=== PATIENT | female | born 1975 | race African-American/Black ===

== ENCOUNTER 2019-06-15 08:02 | Emergency (ER) | payer MEDICAID ==
[~2019-06-15] VITALS: Ht 162.6 cm; Wt 70.3 kg
[2019-06-15] MEDS ORDERED: DiphenhydrAMINE 50mg/ml Inj IVP ONE (08:30)
[2019-06-15] MEDS ORDERED: Ketorolac 30mg Inj IV ONE (08:30)
[2019-06-15] MEDS ORDERED: Metoclopramide 10mg/2ml Inj IVP ONE (08:30)
--- NOTE | 2019-06-15 08:30 | Emergency Room Report ---
History of Present Illness General Chief Complaint: Headache Source: Patient Present Illness HPI Patient is a 43-year-old female presented after increased headache for 5 days. Headache is been present intermittently for several days. She had sick contacts at home. She denies any neck stiffness. She reports having throbbing sensation to the frontal area. She denies any neck stiffness or fever. She denies prior history of imaging studies. She had recently been seen at [facility] at [place]. Denies vomiting some phonophobia. gradual onset. Allergies: Coded Allergies: No Known Allergies (Unverified , 06/15/19) Patient History Past Medical History: see triage record Last Menstrual Period: 05/24/19 Reviewed Nursing Documentation: PMH: Agreed; PSxH: Agreed Nursing Documentation-PMH Past Medical History: No Stated History Review of Systems All Other Systems: negative except mentioned in HPI Physical Exam Vital Signs Date Time Temp Pulse Resp B/P (MAP) Pulse Ox O2 Delivery O2 Flow Rate FiO2 06/15/19 08:08 98.1 81 18 142/81 (101) 100 Room Air Sp02 EP Interpretation: reviewed, normal General Appearance: normal inspection, well appearing, no apparent distress, alert, GCS 15 Head: atraumatic ENT: normal ENT inspection, hearing grossly normal, normal voice, uvula midline , pharyngeal erythema Neck: normal inspection, full range of motion, supple, no bony tend Respiratory: normal inspection, lungs clear, normal breath sounds, no respiratory distress, no retraction, no wheezing Cardiovascular #1: regular rate, rhythm, no edema Gastrointestinal: normal inspection, normal bowel sounds, non tender, soft, no guarding, no hernia Genitourinary: no CVA tenderness Musculoskeletal: normal inspection, back normal, normal range of motion Neurologic: normal inspection, alert, oriented x3, responsive, bi tri operator III-XII nml as tested, motor strength/tone normal, speech normal Psychiatric: normal inspection, judgement/insight normal, mood/affect normal Skin: no rash Medical Decision Making Diagnostic Impression: Primary Impression: Iron deficiency anemia Additional Impression: Headache ER Course Patient presented for headache. Differential diagnoses included but was not limited to skull fracture, subarachnoid hemorrhage, meningitis, aneurysm, mass lesion, intracranial hemorrhage. Because of complexity of patient's case laboratory tests and imaging studies were ordered.Patient was noted to have some significant anemia. She does not appear to require transfusion at this time and has no evidence of active bleeding. Patient was advised to take iron pills. She is advised to follow-up with her primary care physician to have her hemoglobin rechecked. CT imaging showed no evidence of acute intracranial pathology, minimal sinus disease. Patient does not appear to require antibiotics at this time. No evidence of meningitis. Patient was advised of laboratory results. She was advised to return if she had any worsening condition or other concerns. The patient is advised to follow up with primary care doctor in 1-2 days. Patient is advised to return if any worsening condition or if any changes in status that are concerning. This report is dictated with [employer] gardening manager software which may occasionally lead to discrepancies related to use of this software. Labs Test 06/15/19 08:14 06/15/19 08:43 Urine Color Pale yellow Urine Appearance Clear Urine pH 5 (4.5-8.0) Urine Specific [place] 1.020 (1.005-1.035) Urine Protein Negative (NEGATIVE) Urine Glucose (UA) Negative (NEGATIVE) Urine Ketones Negative (NEGATIVE) Urine Blood 2+ (NEGATIVE) Urine Nitrite Negative (NEGATIVE) Urine Bilirubin Negative (NEGATIVE) Urine Urobilinogen Normal MG/DL (0.0-1.0) Urine Leukocyte Esterase Negative (NEGATIVE) Urine RBC 0-2 /HPF (0 - 2) Urine WBC 0-2 /HPF (0 - 2) Urine Squamous Epithelial Cells Few /LPF (NONE/OCC) Urine Bacteria Few /HPF (NONE) Urine Mucus Few /LPF (NONE/OCC) Urine HCG, Qualitative Negative (NEGATIVE) White Blood Count 6.6 K/UL (4.8-10.8) Red Blood Count 4.02 M/UL (4.20-5.40) Hemoglobin 8.7 G/DL (12.0-16.0) Hematocrit 28.3 % (37.0-47.0) Mean Corpuscular Volume 71 FL (80-99) Mean Corpuscular Hemoglobin 21.7 PG (27.0-31.0) Mean Corpuscular Hemoglobin Concent 30.8 G/DL (32.0-36.0) Red Cell Distribution Width 16.6 % (11.6-14.8) Platelet Count 347 K/UL (150-450) Mean Platelet Volume 5.4 FL (6.5-10.1) Neutrophils (%) (Auto) 59.3 % (45.0-75.0) Lymphocytes (%) (Auto) 27.6 % (20.0-45.0) Monocytes (%) (Auto) 6.8 % (1.0-10.0) Eosinophils (%) (Auto) 5.0 % (0.0-3.0) Basophils (%) (Auto) 1.4 % (0.0-2.0) Sodium Level 138 MMOL/L (136-145) Potassium Level 3.8 MMOL/L (3.5-5.1) Chloride Level 107 MMOL/L (98-107) Carbon Dioxide Level 28 MMOL/L (21-32) Anion Gap 3 mmol/L (5-15) Blood Urea Nitrogen 7 mg/dL (7-18) Creatinine 0.6 MG/DL (0.55-1.30) Estimat Glomerular Filtration Rate > 60 mL/min (>60) Glucose Level 94 MG/DL (74-106) Calcium Level 8.7 MG/DL (8.5-10.1) Total Bilirubin 0.4 MG/DL (0.2-1.0) Aspartate Amino Transf (AST/SGOT) 21 U/L (15-37) Alanine Aminotransferase (ALT/SGPT) 20 U/L (12-78) Alkaline Phosphatase 67 U/L (46-116) Total Protein 8.5 G/DL (6.4-8.2) Albumin 3.3 G/DL (3.4-5.0) Globulin 5.2 g/dL Albumin/Globulin Ratio 0.6 (1.0-2.7) Last Vital Signs Date Time Temp Pulse Resp B/P (MAP) Pulse Ox O2 Delivery O2 Flow Rate FiO2 06/15/19 08:08 98.1 81 18 142/81 (101) 100 Room Air Status: improved Disposition: HOME, SELF-CARE Condition: Stable Scripts Docusate Sodium* (COLACE*) 100 Mg Capsule 100 MG ORAL TWICE A DAY, #20 CAP Prov: Quincy Scott MD 06/15/19 Ferrous Sulfate* (FERROUS SULFATE*) 325 Mg Tablet 325 MG ORAL DAILY, #30 TAB 0 Refills Prov: Quincy Scott MD 06/15/19 Quincy Scott MD Jun 15, 2019 08:30
[2019-06-15] MEDS ORDERED: NKM (08:41)
[2019-06-15 08:47] VITALS: BP 139/77
--- NOTE | 2019-06-15 08:50 | NUR ---
ED Nurse Note: Late entry: PT walked into ED from home, drove self, A/O x 4, facial grimacing noted, said her headache "comes and goes or less, aches in ears, eyes feels heavy." PT states she had nausea when she had headache, states no V/D. PT states she hasn't traveled outside of the country. VS BP 139/77, HR 74; RR 20; 100% saturation on RA.
[2019-06-15 09:06] LABS: BASOPHILS % (AUTO) 1.4 % (0.0-2.0); HEMATOCRIT 28.3 % (37.0-47.0); HEMOGLOBIN 8.7 G/DL (12.0-16.0); LYMPHOCYTES % (AUTO) 27.6 % (20.0-45.0); MEAN CORPUSCULAR VOLUME 71 FL (80-99); MONOCYTES % (AUTO) 6.8 % (1.0-10.0); NEUTROPHILS % (AUTO) 59.3 % (45.0-75.0); PLATELET COUNT 347 K/UL (150-450); RED BLOOD COUNT 4.02 M/UL (4.20-5.40); RED CELL DISTRIBUTION WIDTH 16.6 % (11.6-14.8); WHITE BLOOD COUNT 6.6 K/UL (4.8-10.8)
[2019-06-15 09:12] LABS: APPEARANCE,URINE CLEAR; BILIRUBIN, URINE NEGATIVE (NEGATIVE); COLOR,URINE PALE YELLOW; GLUCOSE, URINE (UA) NEGATIVE (NEGATIVE); KETONES,URINE NEGATIVE (NEGATIVE); LEUKOCYTE ESTERASE ,URINE NEGATIVE (NEGATIVE); NITRITE,URINE NEGATIVE (NEGATIVE); PH,URINE 5 (4.5-8.0); PROTEIN,URINE NEGATIVE (NEGATIVE); UROBILINOGEN,URINE NORMAL MG/DL (0.0-1.0)
[2019-06-15 09:16] LABS: ANION GAP 3 mmol/L (5-15); BLOOD UREA NITROGEN 7 mg/dL (7-18); CALCIUM 8.7 MG/DL (8.5-10.1); CARBON DIOXIDE 28 MMOL/L (21-32); CHLORIDE 107 MMOL/L (98-107); CREATININE 0.6 MG/DL (0.55-1.30); POTASSIUM 3.8 MMOL/L (3.5-5.1); SODIUM 138 MMOL/L (136-145)
[2019-06-15 09:22] LABS: ALANINE AMINOTRANSFERASE 20 U/L (12-78); ALBUMIN 3.3 G/DL (3.4-5.0); ALBUMIN/GLOBULIN RATIO 0.6 (1.0-2.7); ALKALINE PHOSPHATASE 67 U/L (46-116); ASPARTATE AMINO TRANSFERASE 21 U/L (15-37); BILIRUBIN,TOTAL 0.4 MG/DL (0.2-1.0)
[2019-06-15] MEDS ORDERED: FERROUS SULFAT325 MG ORAL (09:22)
[2019-06-15] MEDS ORDERED: COLACE100 MG ORAL (09:22)
--- NOTE | 2019-06-15 09:22 | Diagnostic Imaging Report ---
Indications: Increased headache for 5 days Technique: Spiral acquisitions obtained through the brain. Angled axial and coronal 5 x 5 mm slices were reconstructed. Total dose length product 1244 mGycm. CTDI vol(s) 60 mGy. Dose reduction achieved using automated exposure control Comparison: None. Findings: Prominent cisterna magna noted. No acute intracranial hemorrhage or edema. No mass effect nor midline shift. Normal conklin-white differentiation. Normal size ventricles and extra-axial CSF spaces. Visualized orbits are unremarkable. The mastoids are clear. There is posterior ethmoid sinus disease. The calvarium is intact. Impression: Negative for acute intracranial bleed or mass effect Incidental finding of minimal sinus disease The CT scanner at [facility] is accredited by the [employer] and the scans are performed using protocols designed to limit radiation exposure to as low as reasonably achievable to attain images of sufficient resolution adequate for diagnostic evaluation.
--- NOTE | 2019-06-15 09:27 | NUR ---
ED Nurse Note: R-AC 20g IV placed, labs drawn and sent, IV is intact and patent. Ordered meds given, PT reports nausea. Will continue to monitor.
[2019-06-15 09:47] VITALS: BP 104/80
--- NOTE | 2019-06-15 09:51 | NUR ---
ER DISCHARGE NOTE: Patient is cleared to be discharged per ERMD, pt is aox4, on room air, with stable vital signs. pt was given dc, lab report, prescription instructions, teachings, pt was able to verbalize understanding, pt id band and iv site removed without complications. pt is able to ambulate with steady gait. pt took all belongings. PT signed for D/C.
== END 2019-06-15 09:50 | disposition home or self-care (01) ==
LOC: EMR 08:20
DX: D50.9 Iron deficiency anemia, unspecified (principal); R51 Headache
CPT/HCPCS: 36415; 70450; 80053; 81003; 81025; 85025; 96374; 96375; J1200; J1885; J2765; Z7502; 99284